=== PATIENT | female | born 1995 | race Caucasian/White ===

== ENCOUNTER 2020-01-29 15:19 | Outpatient (REF) | payer OTHER, SELFPAY | END 2020-01-29 15:20 | disposition home or self-care (01) | LOC: HO.LAB 15:19 | PROVIDERS: Visit Provider Obstetrics & Gynecology | DX: R87.619 Unspecified abnormal cytological findings in specimens from cervix uteri (principal) | CPT/HCPCS: 88305; 88342; 88360 ==

== ENCOUNTER → 2020-02-06 10:51 | Outpatient (BNVA) | payer OTHER, SELFPAY | PROVIDERS: Visit Provider Obstetrics & Gynecology | DX: Z76.89 Persons encountering health services in other specified circumstances (principal) ==

== ENCOUNTER 2020-02-12 14:30 | Outpatient (REF) | payer OTHER, SELFPAY ==
--- NOTE | 2020-02-12 14:42 | MR_ITS ---
EXAMINATION: MR PELVIS WITH AND WITHOUT CONTRAST CLINICAL INFORMATION: Abnormal bleeding. Abnormal Pap smear. COMPARISON: None TECHNIQUE: MRI of the abdomen was obtained before and after the administration of intravenous contrast (Gadavist 6.5 mL). FINDINGS: UTERUS: Anteverted/anteflexed. Normal myometrial signal seen. The fibromuscular junction and endometrium are unremarkable. The cervix and cervical canal are unremarkable. No abnormal enhancement is seen. Mild nonenhancing fluid signal seen within the vaginal canal/fornix adjacent to the cervix without surrounding abnormality. OVARIES: Unremarkable. URINARY BLADDER/DISTAL URETERS: Unremarkable. BOWEL: Visualized small and large bowel are unremarkable. LYMPH NODES: No lymphadenopathy. VASCULAR: Unremarkable. OSSEOUS: Moderate degenerative disc disease is seen at L5-S1. No suspicious abnormality. SOFT TISSUES: Unremarkable. MR/MR pelvis wo/w con IMPRESSION: 1. Mild nonenhancing fluid adjacent to the cervix in the vaginal canal/fornix. This is likely physiologic and/or postprocedural without surrounding abnormality. The adjacent cervix and cervical canal are unremarkable without focal lesion or enhancing abnormality. No uterine or ovarian abnormality. Abnormal bleeding persists/worsens, a repeat contrast-enhanced pelvic MRI is recommended in 6 months. 2. L5-S1 moderate degenerative disc disease.
== END 2020-02-12 14:31 | disposition home or self-care (01) ==
LOC: HO.MRI 14:30
PROVIDERS: Visit Provider Obstetrics & Gynecology
DX: C53.9 Malignant neoplasm of cervix uteri, unspecified (principal)
CPT/HCPCS: 72197; A9585